=== PATIENT | male | born 1925 | race Caucasian/White ===

== ENCOUNTER 2017-03-22 11:32 | Inpatient (IN) ==
[2017-03-22] MEDS ORDERED: 0.9 % SODIUM CHLORIDE 1,000 ML IV ONE (12:29)
[2017-03-22 12:31] LABS: Basophils # (Auto) 0 K/mcL (0.0-0.3); Basophils % (Auto) 0.5 % (0.0-2.0); Eosinophils # (Auto) 0 K/mcL (0.0-0.7); Eosinophils % (Auto) 0.3 % (0.0-7.0); Granulocytes % (Auto) 61.6 % (38.0-78.0); Lymphocytes # (Auto) 1.5 K/mcL (1.5-4.8); Lymphocytes % (Auto) 23.8 % (15.5-49.0); Mean Cell Volume 100.5 fL (80.0-100.0); Mean Corpuscular HGB Conc 33.6 g/dL (31.0-36.0); Mean Corpuscular Hemoglobin 33.7 pg (26.0-34.0); Monocytes # (Auto) 0.8 K/mcL (0.1-0.9); Monocytes % (Auto) 13.8 % (1.0-12.0); Platelet Count 146 K/mcL (140-440); Red Cell Distribution Width 15.3 % (11.5-14.5)
--- NOTE | 2017-03-22 12:53 | XRay Report ---
CLINICAL INFORMATION: Weakness COMPARISON: None. FINDINGS: The heart is moderately enlarged. Mediastinum is unremarkable. Upper lobe pulmonary vessels are mildly distended and there is minimal interstitial edema. No infiltrates or effusions. Bones soft tissues are normal. IMPRESSION: Mild CHF Interpreted and Authenticated by: Ozzy Rogel 03/22/17
[2017-03-22 12:55] LABS: ALT/SGPT 10 U/l (0-40); Alkaline Phosphatase 69 U/L (39-117); Blood Urea Nitrogen 51 mg/dl (8-23)
[2017-03-22 13:13] LABS: Creatine Kinase 24 IU/L (24-195); Creatine Kinase MB 1.5 ng/ml (0-4.9)
--- NOTE | 2017-03-22 14:21 | Emergency Department Note ---
General Adult HPI - General Chief complaint: Dizziness Stated complaint: Dizziness, hypotension, weakness Time Seen by Provider: 03/22/17 11:42 Source: patient, family, EMS Mode of arrival: EMS Limitations: no limitations - History of Present Illness HPI Narrative: 89-year-old male comes over from [facility] nursing facility with lightheadedness. He almost fell out of his chair while trying to eat breakfast. Has some hypotension and weakness. No fever chills nausea vomiting. No trouble urinating. Normally he walks with a walker but not today. He notes some cramping and diarrhea for the last 4 days - Related Data Home Medications Medication Instructions Recorded Confirmed benazepril 20 mg tablet 20 mg PO QDAY tab 09/16/15 03/22/17 cholecalciferol (vitamin D3) 5,000 5,000 unit PO QDAY tab 09/16/15 05/25/16 unit tablet simvastatin 40 mg tablet 20 mg PO QDAY tab 09/16/15 03/22/17 Apixaban [Eliquis] 5 mg PO BID 03/22/17 03/22/17 Furosemide [Lasix] 40 mg PO DAILY 03/22/17 03/22/17 Potassium Chloride [Klor-Con M10] 30 meq PO 03/22/17 Spironolactone [Aldactone] 25 mg PO DAILY 03/22/17 03/22/17 Vitamin D3 1,000 unit PO DAILY 03/22/17 03/22/17 Previous Rx's Medication Instructions Recorded finasteride 5 mg tablet 5 mg PO DAILY #90 tab 11/29/16 oxybutynin chloride ER 5 mg 5 mg PO QDAY #90 tab 11/29/16 tablet,extended release 24 hr Allergies Allergy/AdvReac Type Severity Reaction Status Date / Time Sulfa (Sulfonamide Allergy Mild Itching Verified 03/22/17 15:29 Antibiotics) Review of Systems All systems ED: reviewed and negative except as stated. Past Medical History - Past Medical History Attestation: Yes: The following information was validated with the patient. Medical history: Reports: atrial fibrillation, CVA, DVT, hyperlipidemia, hypertension, osteoporosis, other (Prostate hypertrophy) Surgical history ED: Reports: knee replacement, splenectomy, other (Terry filter, bladder surgery ) - Social History smoking status: Never smoker Physical Exam Thin frail appearing elderly gentleman in no acute distress. Normocephalic atraumatic. Conjunctive are clear sclerae nonicteric. No nasal discharge or congestion. Oropharynx is pink and moist. Neck is supple without lymphadenopathy or thyromegaly. Heart is regular the irregular rhythm. Lungs are clear to auscultation bilaterally without wheezes rales rhonchi or respiratory distress. Abdomen soft nontender nondistended. No pedal edema. + 2 radial pulse. Alert oriented. Able to answer questions appropriately but irritable - General Limitations: no limitations Course Vital Signs Temperature 98.4 F 03/22/17 11:33 Pulse Rate 78 03/22/17 11:33 Respiratory Rate 20 03/22/17 11:33 Blood Pressure 76/50 03/22/17 11:33 Pulse Oximetry (%) 95 03/22/17 11:33 Temperature 97.1 F 03/23/17 07:54 Pulse Rate 71 03/23/17 04:00 Respiratory Rate 14 03/23/17 07:54 Blood Pressure 88/50 03/23/17 07:54 Pulse Oximetry (%) 91 03/23/17 07:54 Medical Decision Making - Medical Records Medical records reviewed: Yes I reviewed the patient's medical records. - Lab Data Lab results reviewed: Yes I reviewed the patient's lab results. Result diagrams: 03/23/17 03:45 03/23/17 03:45 Lab Results 03/22/17 03/22/17 03/22/17 Range/Units 12:05 12:05 12:05 WBC 6.1 (4.5-11.0) K/mcL RBC 4.10 L (4.50-5.90) M/mcL Hgb 13.8 (13.5-16.5) g/dL Hct 41.1 (41.0-55.0) % MCV 100.5 H (80.0-100.0) fL MCH 33.7 (26.0-34.0) pg MCHC 33.6 (31.0-36.0) g/dL RDW 15.3 H (11.5-14.5) % Plt Count 146 (140-440) K/mcL MPV 10.8 H (7.4-10.4) fL Gran % 61.6 (38.0-78.0) % Lymph % (Auto) 23.8 (15.5-49.0) % [place] % (Auto) 13.8 H (1.0-12.0) % Eos % (Auto) 0.3 (0.0-7.0) % Baso % (Auto) 0.5 (0.0-2.0) % Gran # 3.8 (1.8-8.0) K/mcL Lymph # (Auto) 1.5 (1.5-4.8) K/mcL [place] # (Auto) 0.8 (0.1-0.9) K/mcL Eos # (Auto) 0 (0.0-0.7) K/mcL Baso # (Auto) 0 (0.0-0.3) K/mcL VBG Lactic Acid (0.5-2.2) mmol/L Sodium 137 (133-145) mmol/L Potassium 4.8 (3.3-5.1) mmol/L Chloride 103 (96-108) mmol/L Carbon Dioxide 20 L (22-30) mmol/L Anion Gap 14.0 (8-16) BUN 51 H (8-23) mg/dl Creatinine 1.9 H (0.7-1.2) mg/dl GFR Calculation 31 Glucose 103 (70-105) mg/dL Calcium 8.7 (8.6-10.4) mg/dl Total Bilirubin 1.7 H (0.0-1.0) mg/dL AST 14 (0-37) U/l ALT 10 (0-40) U/l Alkaline Phosphatase 69 (39-117) U/L Total Creatine Kinase 24 (24-195) IU/L CK-MB (CK-2) 1.5 (0-4.9) ng/ml Troponin T (0-0.03) ng/ml Total Protein 6.0 (5.9-8.4) gm/dL Albumin 3.0 L (3.2-5.2) gm/dL Globulin 3.0 (2.2-3.7) gm/dL Albumin/Globulin Ratio 1.0 (1.0-2.3) 03/22/17 03/22/17 Range/Units 12:05 13:08 WBC (4.5-11.0) K/mcL RBC (4.50-5.90) M/mcL Hgb (13.5-16.5) g/dL Hct (41.0-55.0) % MCV (80.0-100.0) fL MCH (26.0-34.0) pg MCHC (31.0-36.0) g/dL RDW (11.5-14.5) % Plt Count (140-440) K/mcL MPV (7.4-10.4) fL Gran % (38.0-78.0) % Lymph % (Auto) (15.5-49.0) % [place] % (Auto) (1.0-12.0) % Eos % (Auto) (0.0-7.0) % Baso % (Auto) (0.0-2.0) % Gran # (1.8-8.0) K/mcL Lymph # (Auto) (1.5-4.8) K/mcL [place] # (Auto) (0.1-0.9) K/mcL Eos # (Auto) (0.0-0.7) K/mcL Baso # (Auto) (0.0-0.3) K/mcL VBG Lactic Acid 1.0 (0.5-2.2) mmol/L Sodium (133-145) mmol/L Potassium (3.3-5.1) mmol/L Chloride (96-108) mmol/L Carbon Dioxide (22-30) mmol/L Anion Gap (8-16) BUN (8-23) mg/dl Creatinine (0.7-1.2) mg/dl GFR Calculation Glucose (70-105) mg/dL Calcium (8.6-10.4) mg/dl Total Bilirubin (0.0-1.0) mg/dL AST (0-37) U/l ALT (0-40) U/l Alkaline Phosphatase (39-117) U/L Total Creatine Kinase (24-195) IU/L CK-MB (CK-2) (0-4.9) ng/ml Troponin T < 0.01 (0-0.03) ng/ml Total Protein (5.9-8.4) gm/dL Albumin (3.2-5.2) gm/dL Globulin (2.2-3.7) gm/dL Albumin/Globulin Ratio (1.0-2.3) - Radiology Data Radiology results reviewed: Yes I reviewed the patient's radiology results. Bladder scan 125 mL of urine Chest x-ray shows mild to moderate CHF with pulmonary vascular congestion - EKG Data EKG #1 EKG attestation: Yes I reviewed and interpreted this EKG. EKG results narrative: Rate is 78 with atrial fibrillation low voltage in the inferior leads Disposition Clinical Impression: Acute kidney injury, Dehydration Diarrhea Qualifiers: Diarrhea type: unspecified type Qualified Code(s): R19.7 - Diarrhea, unspecified Hypotension Qualifiers: Hypotension type: unspecified hypotension type Qualified Code(s): I95.9 - Hypotension, unspecified Summary: Hypotensive and with acute renal failure likely secondary to dehydration from diarrhea. Started IV fluids during workup Discussed patient with Dr. Herrera hospitalist, agreed to admit the patient for further care and evaluation Disposition: Xfer As Inpt ([facility]) Condition: Fair
[2017-03-22] MEDS ORDERED: NALOXONE HCL 0.4 MG/ML VIAL IV PRN (15:26)
[2017-03-22] MEDS ORDERED: HYDROcodone/APAP 5/325MG TABLET PO PRN (15:26)
[2017-03-22] MEDS ORDERED: ACETAMINOPHEN 325 MG TABLET PO PRN (15:26)
[2017-03-22] MEDS ORDERED: ONDANSETRON 4 MG/2 ML VIAL IV PRN (15:26)
[2017-03-22] MEDS ORDERED: IPRATROPIUM/ALBUTEROL 3 ML AMPUL.NEB NEB PRN (15:26)
--- NOTE | 2017-03-22 15:46 | Internal Med History&Physical ---
Medical - H&P: HPI Patient information: Note initiated : 03/22/17 at 3:42 pm Service Date, if different from initiated Date: [] Patient: Maxwell Velazquez a 89 y/o M admitted on for Dizziness, Hypotension, Weakness. Chief Complaint: [] History of present illness: Mr. Velazquez is a 89 year old male with h/o Chr DVT, Afib, presents to the ER with presyncope, weakness and dizziness. The patient has not been feeling well, for over 2 weeks, his pcp swictched him from coumadin to eliquis. The patient also had significant swelling in his legs and his dose of diuretics was doubled (lasix 20 to 40) , and he was started on a new diuretic(spironolactone 50), Since then the patient has had increased weakness and fatigue. Over the last few days, Tuesday he started having diarrhea , 3 episodes, then on tuesday one episode. 2 episodes on Tuesday, adn Tuesday and today. HE was therefore brought in for eval. He denies any blood or mucous in stool, no abdominal pain, no nausea or vomiting, no difficulty in passing urine. He is able to tolerate PO ok, but not sure if he has been drinking enough fluid. No recent hospitalization or use of antibiotic. In the ER the patient was noted to be hypotensive, he had elevated creat and clinically appeared dry, He was therefore admitted to the hospital for further management. Review of systems: CONSTITUTIONAL: No weight loss, fever, chills. Present weakness and fatigue. HEENT: Eyes: No visual loss, blurred vision, double vision or yellow sclerae. Ears, Nose, Throat: No hearing loss, sneezing, congestion, runny nose or sore throat. SKIN: No rash or itching. CARDIOVASCULAR: No chest pain, chest pressure or chest discomfort. No palpitations or edema. RESPIRATORY: No shortness of breath, cough or sputum. GASTROINTESTINAL: No nausea, vomiting or constipation. No abdominal pain or blood in stools No Najma. Present Diarrhea GENITOURINARY: Denies Burning on urination. Blood in urine, or foul smelling urine NEUROLOGICAL: No headache, dizziness, syncope, paralysis, tremors, numbness or tingling in the extremities. No change in bowel or bladder control. MUSCULOSKELETAL: No muscle, back pain, joint pain or stiffness. HEMATOLOGIC: No bleeding or bruising. No enlarged nodes PSYCHIATRIC: No depression or anxiety. ENDOCRINOLOGIC: No reports of sweating, cold or heat intolerance. No polyuria or polydipsia. ALLERGIES: No hives, eczema or rhinitis. Skin: No rash, no jaundice, cyanosis or pallor. 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) Bladder trabeculation (Chronic) Breast hypertrophy (Chronic) Cerebrovascular accident (Chronic) Colon polyps (Chronic) Diverticulosis of colon (Chronic) Hematuria, gross (Chronic 01/09/14) Hemorrhoids (Chronic) Hyperlipidemia (Chronic) Hyperplasia of prostate without lower urinary tract symptoms (LUTS) (Chronic) Hypertension (Chronic) Impacted cerumen (Chronic) Knee pain (Chronic) Neoplasm of uncertain behavior (Chronic) Onychomycosis (Chronic) Osteopenia (Chronic) Seborrheic keratosis (Chronic) Urinary calculus (Chronic 01/16/14) Urinary tract infection (Chronic) Venous insufficiency (Chronic) Weakness (Chronic) Surgical history: Past Surgical History (Last Updated 02/17/17 @ 14:10 by [email or web address] PA) History of bladder surgery (Chronic) History of cystoscopy (Chronic) History of knee replacement procedure of right knee (Chronic) History of splenectomy (Chronic) Family history: reviewed and not pertinent 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 Medical - H&P: Meds Home Medications Medication Instructions Recorded Confirmed Type benazepril 20 mg tablet 20 mg PO QDAY tab 09/16/15 05/25/16 History cholecalciferol (vitamin D3) 5,000 5,000 unit PO QDAY tab 09/16/15 05/25/16 History unit tablet simvastatin 40 mg tablet 20 mg PO QDAY tab 09/16/15 05/25/16 History finasteride 5 mg tablet 5 mg PO DAILY #90 tab 11/29/16 11/29/16 Rx oxybutynin chloride ER 5 mg 5 mg PO QDAY #90 tab 11/29/16 11/29/16 Rx tablet,extended release 24 hr Apixaban [Eliquis] 5 mg PO BID 03/22/17 03/22/17 History Furosemide [Lasix] 40 mg PO DAILY 03/22/17 03/22/17 History Potassium Chloride [Klor-Con M10] 30 meq PO 03/22/17 History Spironolactone [Aldactone] 25 mg PO DAILY 03/22/17 03/22/17 History Vitamin D3 1,000 unit PO DAILY 03/22/17 03/22/17 History Allergies Allergy/AdvReac Type Severity Reaction Status Date / Time Sulfa (Sulfonamide Allergy Mild Itching Verified 03/22/17 15:29 Antibiotics) Medical - H&P: Exam - Constitutional Vitals: Temp Pulse Resp BP Pulse Ox 98.4 F 98 H 15 108/76 91 03/22/17 11:33 03/22/17 14:51 03/22/17 14:51 03/22/17 14:31 03/22/17 14:51 Exam: GENERAL: The patient is a well-developed, well-nourished in no apparent distress. Is alert and oriented x3. VITAL SIGNS: Reviewed and as noted elsewhere. HEENT: Head is normocephalic and atraumatic. Extraocular muscles are intact. Pupils are equal, round, and reactive to light. Nares appeared normal. Mouth appears any without lesions. Mucous membranes are dry. NECK: Normal to inspection, Supple, No lymphadenopathy or thyromegaly. LUNGS: Air entry equal on both sides, no wheezing, crackles or rhonchi noted. No accessory muscles of respiration HEART: Regular rate and rhythm irregular , S1 and S2 heard, no Gallop, S3 or Rub Noted, No Gross murmur heard. ABDOMEN: Soft, nontender, and nondistended. Positive bowel sounds. No hepatosplenomegaly was noted. EXTREMITIES: No cyanosis, clubbing, rash, lesions or edema. NEUROLOGIC: Cranial nerves II through XII are grossly intact. Motor and Sensory System Grossly Intact PSYCHIATRIC: Normal affect, Normal Mood. Appropriate Behavior. SKIN: No ulceration or wounds noted, No jaundice, No rash noted. Legs: No edema, tarah venous statis noted, poor nails Medical - H&P: Reslt - Labs CBC & Chem 7: 06/20/17 12:05 03/22/17 12:05 Labs: Short CBC 03/22/17 Range/Units 12:05 WBC 6.1 (4.5-11.0) K/mcL Hgb 13.8 (13.5-16.5) g/dL Hct 41.1 (41.0-55.0) % Plt Count 146 (140-440) K/mcL BMP 03/22/17 12:05 Sodium 137 Potassium 4.8 Chloride 103 Carbon Dioxide 20 L BUN 51 H Creatinine 1.9 H Glucose 103 Calcium 8.7 Cardiac Enzymes 03/22/17 03/22/17 Range/Units 12:05 12:05 Total Creatine Kinase 24 (24-195) IU/L CK-MB (CK-2) 1.5 (0-4.9) ng/ml Troponin T < 0.01 (0-0.03) ng/ml Liver Function 03/22/17 Range/Units 12:05 Total Bilirubin 1.7 H (0.0-1.0) mg/dL AST 14 (0-37) U/l ALT 10 (0-40) U/l Alkaline Phosphatase 69 (39-117) U/L Albumin 3.0 L (3.2-5.2) gm/dL Medical - H&P: A/P - Narrative A/P Narrative: A/P Acute Kidney Injury: Pre Renal, due to diarrhea and Diuretics. Plan to hold Diurtiecs, CHRIST inhibitor and give IV fluids. BP stable now. Hold nephrotoxic drugs. Get UA, urine lytes. Consider Renal sonogram and renal consult if patient does not improve with fluids Diarrhea: Etiology: viral likely, get Cdiff. Afib: HR well controlled, IV fluids, on eliquis for anticoagulation. DVT: Recurrent episodes it seems, s/p IVC filter, on anticoagulation continue same HTN : Hypotensive at present, hold christ inhibitors. Monitor. Resume home meds for HLD, BPH, OAB. DVT on eliquis Diet Reguar diet Code DNR
[2017-03-22] MEDS: 0.9 % SODIUM CHLORIDE 1,000 ML IV SCH (16:42)
[2017-03-22 17:15] LABS: Appearance,Urine CLEAR; Bacteria,Urine FEW /hpf (0); Bilirubin,Urine NEG (NEG); Color,Urine YELLOW; Glucose,Urine (UA) NEGATIVE (NEG); Leukocyte Esterase,Urine 75 /uL (NEG); Mucus,Urine FEW /hpf (0); Nitrate,Urine NEG (NEG); Protein,Urine NEG (NEG); Specific Gravity,Urine 1.013 (1.000-1.035); Urine Blood NEG mg/dL (<0.03); Urine Hyaline Cast 22 /lpf (0-2); Urine RBC 1 /hpf (0-1); Urine Squamous Epithelial Cell < 1 /hpf (0-4); Urine WBC 8 /hpf (0-4); Urobilinogen,Urine NEG (NEG)
[2017-03-22] MEDS: SIMVASTATIN 20 MG TABLET PO SCH (20:15)
[2017-03-22] MEDS: OXYBUTYNIN CHLORIDE 5 MG TAB.XL.24H PO SCH (20:15)
[2017-03-22] MEDS: 0.9 % SODIUM CHLORIDE 10 ML SYRINGE IV SCH (21:50)
[2017-03-22] MEDS: APIXABAN 5 MG TABLET PO SCH (21:50)
[2017-03-23] MEDS: 0.9 % SODIUM CHLORIDE 1,000 ML IV SCH ×3 (01:58→11:23)
[2017-03-23] MEDS: 0.9 % SODIUM CHLORIDE 10 ML SYRINGE IV SCH ×3 (05:35→20:30)
[2017-03-23 05:56] LABS: Basophils % (Auto) 0.7 % (0.0-2.0); Eosinophils % (Auto) 1.2 % (0.0-7.0); Granulocytes % (Auto) 54.2 % (38.0-78.0); Lymphocytes # (Auto) 2.1 K/mcL (1.5-4.8); Mean Corpuscular HGB Conc 33.4 g/dL (31.0-36.0); Mean Corpuscular Hemoglobin 33.8 pg (26.0-34.0); Monocytes # (Auto) 0.9 K/mcL (0.1-0.9); Monocytes % (Auto) 12.9 % (1.0-12.0); Platelet Count 135 K/mcL (140-440); RBC 4.05 M/mcL (4.50-5.90); Red Cell Distribution Width 15.3 % (11.5-14.5)
[2017-03-23 05:57] LABS: Basophils # (Auto) 0.1 K/mcL (0.0-0.3); Eosinophils # (Auto) 0.1 K/mcL (0.0-0.7)
[2017-03-23 06:42] LABS: ALT/SGPT 11 U/l (0-40); Albumin 3.1 gm/dL (3.2-5.2); Alkaline Phosphatase 74 U/L (39-117); Bilirubin,Direct 0.2 mg/dL (0.0-0.3); Blood Urea Nitrogen 34 mg/dl (8-23); Gamma Glutamyl Transpeptidase 20 U/L (8-61); Magnesium 1.9 mg/dL (1.6-2.5); Uric Acid 6.8 mg/dL (2.5-8.0)
[2017-03-23] MEDS: APIXABAN 5 MG TABLET PO SCH (08:35)
[2017-03-23] MEDS: POTASSIUM CHLORIDE 10 MEQ TABLET PO SCH (08:35)
[2017-03-23] MEDS: VITAMIN D3 1,000 UNIT TABLET PO SCH (08:35)
[2017-03-23] MEDS: FINASTERIDE 5 MG TABLET PO SCH (08:35)
[2017-03-23] MEDS ORDERED: 0.9 % SODIUM CHLORIDE 500 ML IV ONE (09:22)
[2017-03-23 09:56] LABS: Cortisol,AM 4.8 ug/dl (6.2-19.4)
[2017-03-23] MEDS ORDERED: cefTRIAXone 2 GM in DEXTROSE 5% IN WATER 50 ML IV SCH (11:00)
--- NOTE | 2017-03-23 14:47 | Internal Med Progress Note ---
Medical - PN: Subj Patient information: Note initiated : 03/23/17 at 2:45 pm Service Date, if different from initiated Date: [] Patient: Maxwell Velazquez 89 y/o M admitted on 03/22/17 for Dizziness, Hypotension, Weakness. Chief Complaint: [] Interval history: Mr. Velazquez is a 89 year old male with h/o Chr DVT, Afib, presents to the ER with presyncope, weakness and dizziness. The patient has not been feeling well, for over 2 weeks, his pcp swictched him from coumadin to eliquis. The patient also had significant swelling in his legs and his dose of diuretics was doubled (lasix 20 to 40) , and he was started on a new diuretic(spironolactone 50), Since then the patient has had increased weakness and fatigue. Over the last few days, Tuesday he started having diarrhea , 3 episodes, then on tuesday one episode. 2 episodes on Tuesday, adn Tuesday and today. HE was therefore brought in for eval. He denies any blood or mucous in stool, no abdominal pain, no nausea or vomiting, no difficulty in passing urine. He is able to tolerate PO ok, but not sure if he has been drinking enough fluid. No recent hospitalization or use of antibiotic. In the ER the patient was noted to be hypotensive, he had elevated creat and clinically appeared dry, He was therefore admitted to the hospital for further management. 03/23: Pt seen examined, sitting comfortably in chair, no acute issues, urine cx positive for proteus, started on rocephin. Patient otherwise has no new complaints, his bp was low again, IV bolus given this AM and on maintaince fluids. Serafin denies any cp, sob, or dizziness. cdiff pending. Pertinent ROS: Denies headache, dizziness Denies chest pain, palpitations Denies cough or shortness of breath Denies abdominal pain, nausea or vomiting. - Constitutional Vitals: Vital Signs Temp Pulse Resp BP Pulse Ox 97.4 F 71 14 88/52 91 03/23/17 11:44 03/23/17 04:00 03/23/17 11:44 03/23/17 11:44 03/23/17 11:44 Period Temp Pulse Resp BP Sys/Topete Pulse Ox Last 24 Hr 97.1 F-97.6 F 70-87 14-14 84-100/50-65 91-95 Intake and Output 03/23/17 03/23/17 03/23/17 05:59 13:59 21:59 Intake Total 1350 / 1350 1360 / 1360 Output Total 301 / 301 Balance 1349 / 1349 1059 / 1059 Intake & Output: Intake & Output 03/23/17 03/23/17 03/23/17 05:59 13:59 21:59 Intake Total 1350 / 1350 1360 / 1360 Output Total 301 / 301 Balance 1349 / 1349 1059 / 1059 Intake: IV 1000 / 1000 1000 / 1000 Sodium Chloride 0.9% 1, 1000 / 1000 1000 / 1000 000 ml @ 125 mls/hr IV . Q8H NITIN Rx#:[id number] Oral 350 / 350 360 / 360 Output: Void Amount 300 / 300 # of times incontinent of urine Other: Meal Breakfast Percent of Meal Consumed 100% Exam: Constitutional; Afebrile, cooperative, alert, not in distress. Eyes- No icterus, , No periorbital swelling Ears- Ext ear normal, hearing hard to conversation. Neck- Midline trachea, supple Respiratory system: Air Entry equal on both sides, No crackles or wheezing, no rhonchi. CVS- Rate rhythm irregular, S1,S2 heard, no gallop, no rub. 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 Medical - PN: Obj Da - Labs CBC & Chem 7: 03/23/17 03:45 03/23/17 03:45 Labs: Abnormal Lab Results 03/23/17 03/23/17 03/23/17 03:45 03:45 03:45 RBC 4.05 L Hct 40.9 L MCV 101.0 H RDW 15.3 H Plt Count 135 L MPV 11.5 H [place] % (Auto) 12.9 H Carbon Dioxide 18 L BUN 34 H Total Bilirubin 1.7 H Lactate Dehydrogenase 277 H Albumin 3.1 L Cortisol AM Sample 4.8 L Ur Leukocyte Esterase Urine WBC Urine Bacteria Hyaline Casts 03/22/17 16:20 RBC Hct MCV RDW Plt Count MPV [place] % (Auto) Carbon Dioxide BUN Total Bilirubin Lactate Dehydrogenase Albumin Cortisol AM Sample Ur Leukocyte Esterase 75 A Urine WBC 8 H Urine Bacteria Few A Hyaline Casts 22 H Meds: Medications Acetaminophen (Tylenol) 650 mg PO Q6HP PRN PRN Reason: PAIN/FEVER > 101 Hydrocodone Bitart/Acetaminophen (Lillian 5/325mg) 1 tab PO Q4HP PRN PRN Reason: Pain Albuterol/Ipratropium (Duoneb) 3 ml NEB Q6HRT PRN PRN Reason: Shortness Of Breath Or Wheezing Finasteride (Proscar) 5 mg PO DAILY [facility] Last Admin: 03/23/17 08:35 Dose: 5 mg Sodium Chloride (Sodium Chloride 0.9%) 1,000 mls @ 125 mls/hr IV .Q8H [facility] Stop: 03/23/17 15:25 Last Admin: 03/23/17 11:23 Dose: 125 mls/hr Ceftriaxone Sodium 2 gm/ (Dextrose) 50 mls @ 100 mls/hr IV Q24H [facility] Last Admin: 03/23/17 11:23 Dose: 100 mls/hr Naloxone HCl (Narcan) 0.1 mg IV Q2MIN PRN PRN Reason: Opiate Reversal Ondansetron HCl (Zofran) 4 mg IV Q6HP PRN PRN Reason: Nausea And Vomiting Oxybutynin Chloride (Ditropan Xl) 5 mg PO [facility] Last Admin: 03/22/17 20:15 Dose: 5 mg Potassium [facility] ([facility]ur) [facility] Admin: 03/23/17 08:35 Dose: 30 meq Simvastatin (Zocor) 20 mg PO [facility] Last Admin: 03/22/17 20:15 Dose: 20 mg Sodium Chloride (Saline Flush) 10 ml IV Q8 [facility] Last Admin: 03/23/17 05:35 Dose: Not Given Vitamin D (Vitamin D3) 1,000 unit PO DAILY [facility] Last Admin: 03/23/17 08:35 Dose: 1,000 unit Medical - PN: A/P - Time Spent With Patient Total time spent is greater than 50% in coordination of care (as documented) at patient's floor/unit and/or counseling patient: - Narrative A/P Narrative: A/P Acute Kidney Injury: pre renal, Creat is improving , today 1.2 from 1.9, continue to hold bp meds and diurteics UTI: proteus noted, started on IV rocephin, await sensitivities. Diarrhea: Etiology: viral likely, await Cdiff. Afib: HR well controlled, IV fluids, on eliquis for anticoagulation. DVT: Recurrent episodes it seems, s/p IVC filter, on anticoagulation continue same HTN : Hypotensive at present, hold tomy inhibitors. Monitor. IV fluids Resume home meds for HLD, BPH, OAB. DVT on eliquis Diet Reguar diet Code DNR Medical - PN: Qual - VTE Deep Vein Thrombosis/Pulmonary Embolism Present on Admission: No
[2017-03-23] MEDS: SIMVASTATIN 20 MG TABLET PO SCH (21:23)
[2017-03-23] MEDS: OXYBUTYNIN CHLORIDE 5 MG TAB.XL.24H PO SCH (21:23)
[2017-03-24] MEDS: APIXABAN 5 MG TABLET PO SCH ×2 (00:30→08:20)
[2017-03-24] MEDS: 0.9 % SODIUM CHLORIDE 10 ML SYRINGE IV SCH (06:07)
[2017-03-24 06:15] LABS: Basophils # (Auto) 0 K/mcL (0.0-0.3); Basophils % (Auto) 0.5 % (0.0-2.0); Eosinophils # (Auto) 0.2 K/mcL (0.0-0.7); Eosinophils % (Auto) 2.3 % (0.0-7.0); Granulocytes % (Auto) 57.7 % (38.0-78.0); Lymphocytes # (Auto) 2.3 K/mcL (1.5-4.8); Lymphocytes % (Auto) 29.3 % (15.5-49.0); Mean Cell Volume 101.9 fL (80.0-100.0); Mean Corpuscular HGB Conc 33.5 g/dL (31.0-36.0); Mean Corpuscular Hemoglobin 34.1 pg (26.0-34.0); Monocytes # (Auto) 0.8 K/mcL (0.1-0.9); Monocytes % (Auto) 10.2 % (1.0-12.0); Platelet Count 128 K/mcL (140-440); RBC 4.07 M/mcL (4.50-5.90); Red Cell Distribution Width 15.6 % (11.5-14.5)
[2017-03-24 06:30] LABS: ALT/SGPT 10 U/l (0-40); Albumin 3.2 gm/dL (3.2-5.2); Alkaline Phosphatase 78 U/L (39-117); Bilirubin,Direct < 0.2 mg/dL (0.0-0.3); Blood Urea Nitrogen 24 mg/dl (8-23); Gamma Glutamyl Transpeptidase 19 U/L (8-61); Magnesium 1.8 mg/dL (1.6-2.5); Uric Acid 5.4 mg/dL (2.5-8.0)
[2017-03-24] MEDS: FINASTERIDE 5 MG TABLET PO SCH (08:20)
[2017-03-24] MEDS: POTASSIUM CHLORIDE 10 MEQ TABLET PO SCH (08:21)
[2017-03-24] MEDS: VITAMIN D3 1,000 UNIT TABLET PO SCH (08:21)
--- NOTE | 2017-03-24 10:59 | Discharge Summary ---
Medical - DS: Prov Patient information: Note initiated : 03/24/17 at 10:51 am Service Date, if different from initiated Date: [] Patient: Maxwell Velazquez 89 y/o M admitted on 03/22/17 for Dizziness, Hypotension, Weakness. Chief Complaint: [] Date of admission: 03/22/17 15:46 Discharge date: 03/24/17 Primary care physician: Mayco Michael Admitting clinician: Venkatesh Herrera Discharging clinician: Venkatesh Herrera Medical - DS: Meds - Discharge Medications Prescriptions: Cefuroxime [Ceftin] 500 mg PO Q12 #20 tablet Furosemide [Lasix] 20 mg PO DAILY #30 tablet Active and Home Medications: Home Medications benazepril 20 mg tablet 20 mg PO QDAY tab 09/16/15 [History Confirmed 03/22/17 Last Taken 03/21/17 20 MG.] cholecalciferol (vitamin D3) 5,000 unit tablet 5,000 unit PO QDAY tab 09/16/15 [History Confirmed 05/25/16 Last Taken Unknown] simvastatin 40 mg tablet 20 mg PO QDAY tab 09/16/15 [History Confirmed Last Taken 03/21/17 40 MG.] finasteride 5 mg tablet 5 mg PO DAILY #90 tab 11/29/16 [Rx Confirmed 03/22/17 Last Taken 03/21/17 5 MG.] oxybutynin chloride ER 5 mg tablet,extended release 24 hr 5 mg PO QDAY #90 tab 11/29/16 [Rx Confirmed 03/22/17 Last Taken 03/21/17 5 MG.] Apixaban [Eliquis] 5 mg PO BID 03/22/17 [History Confirmed 03/22/17 Last Taken 03/21/17 5 MG.] Furosemide [Lasix] 40 mg PO DAILY 03/22/17 [History Confirmed 03/22/17 Last Taken 03/21/17 40 MG.] Potassium Chloride [Klor-Con M10] 30 meq PO 03/22/17 [History Last Taken 30 MEQ] Spironolactone [Aldactone] 25 mg PO DAILY 03/22/17 [History Confirmed 03/22/17 Last Taken 03/21/17 25 MG.] Vitamin D3 1,000 unit PO DAILY 06/20/17 [History Confirmed 03/22/17 Last Taken 03/21/17 1000 UNITS] Medical - DS: Hosp Hospital course: Mr. Velazquez is a 89 year old male with h/o bph, afib, and other medical issues presented to the ER with complaints of diarrhea, dizziness and was noted to be hypotensive and in renal failure on presentation. Acute kidney Injury: Due to dehydration from increased dose of diuretic as well as diarrhea, pt presented with creat of 1.9 on admission, On discharge his creat is 1.0 back to baseline. He is able to tolerate po meds well His dose of lasix has been cut back to 20mg once daily, he will follow up with his PCP for further management. Diarrhea: resolved, cdiff was neg, likely viral in nature. consider prn imodium if recurs UTI: Pt did not endorse UTI symtoms, however urine cx was positive for proteus, sensitive to oral cephalosporins, treated with rocephin, will be discharged with cefuroxime 500mg bid x 10 days. He sees urology on a regular basis. If symptoms recur he may benfit from sooner evaluation by urology. AFib: HR well controlled, on eliquis for anticoagulation continue same. HTN: BP meds were held during hospital stay as pt was hypotensive, to be resumed at discharged. No changes in his meds done except short term use of cefuroxime and cutting back on the dose of lasix from 40 to 20mg. The rest of medical conditions were stable. Pt has home health already in place , services will be resumed at discharge. Discharge diagnosis: UTI, HYpotension, Acute kidney injury - Time Spent with Patient Total time spent providing and/or coordinating discharge services: Greater than 30 minutes Medical - DS: Exam - Constitutional Vitals: Vital Signs Temp Pulse Resp BP Pulse Ox 03/24/17 07:39 98.4 F 16 120/61 95 03/24/17 04:00 97.4 F 80 16 120/65 93 03/24/17 00:00 97.6 F 84 16 111/72 94 03/23/17 20:00 98.0 F 75 16 124/63 94 03/23/17 16:00 97.7 F 14 102/56 91 03/23/17 11:44 97.4 F 14 88/52 91 Intake and Output 03/23/17 03/24/1703/24/17 21:59 05:59 13:59 Intake Total 1240 / 1240 600 / 600 Output Total Balance 1239 / 1239 599 / 599 - Intake: IV 1000 / 1000 Oral 240 / 240 600 / 600 Output: # of times incontinent of urine Other: Meal Dinner Percent of Meal Consumed 100% Feeding Ability Independent # Voids 1 # Bowel Movements 1 Weight 157 lb 8 oz Additional comments: Constitutional; Afebrile, cooperative, alert, not in distress. Eyes- No icterus, , No periorbital swelling Ears- Ext ear normal, hearing normal to conversation. Neck- Midline trachea, supple Respiratory system: Air Entry equal on both sides, No crackles or wheezing, no rhonchi. CVS- Rate rhythm irregular, S1,S2 heard, no gallop, no rub. Abdomen- Soft nontender abdomen, no organomegaly, no tenderness, no guarding or rigidity, [employer]- AOOx3, moving all extremities, no gross focal deficit noted. Medical - DS: Data Labs on day of discharge: Labs from last 24 hours 03/24/17 03/24/17 04:03 04:03 WBC 7.7 RBC 4.07 L Hgb 13.9 Hct 41.5 MCV 101.9 H MCH 34.1 H MCHC 33.5 RDW 15.6 H Plt Count 128 L MPV 11.2 H Gran % 57.7 Lymph % (Auto) 29.3 Yancey % (Auto) 10.2 Eos % (Auto) 2.3 Baso % (Auto) 0.5 Gran # 4.4 Lymph # (Auto) 2.3 Yancey # (Auto) 0.8 Eos # (Auto) 0.2 Baso # (Auto) 0 Sodium 139 Potassium 4.8 Chloride 110 H Carbon Dioxide 21 L Anion Gap 8.0 BUN 24 H Creatinine 1.0 GFR Calculation 66 Glucose 82 Uric Acid 5.4 Calcium 9.2 Phosphorus 2.9 Magnesium 1.8 Total Bilirubin 1.0 Direct Bilirubin < 0.2 GGT 19 AST 15 ALT 10 Alkaline Phosphatase 78 Lactate Dehydrogenase 215 Total Protein 6.3 Albumin 3.2 Globulin 3.1 Albumin/Globulin Ratio 1.0 Triglycerides 65 Medical - DS: A/P - Patient/Caregiver Discharge Instructions Activity: as per physical therapy, increase activity as tolerated Diet: Cardiac Additional Instructions: Your dose of lasix (furosemide) water pill has been cut from 40mg to 20mg, Please follow up with your pcp in 7 days for further management. Go to ER for worsening condition or any new concerning symptom. Take your medications as prescribed. - Follow up Plan Follow up with: Mayco Michael MD [Primary Care Provider] - Venkatesh Herrera MD [Physician] - Disposition: Home Health Service Prognosis: Fair Rehab Potential: Fair I certify that the patient requires SNF services: No Overall status at discharge: patient is progressing back to baseline Medical - DS: Qual - VTE Deep Vein Thrombosis/Pulmonary Embolism Present on Admission: No
== END 2017-03-24 12:05 | disposition home health service (06) | DRG 683 ==
LOC: MEDSUR 11:32 → ED 11:32 → MEDSUR 15:44 → OBSVTOIN 15:46 → MEDSUR 03-23 17:35
PROVIDERS: ADMIT Internal Medicine; ATTEND Internal Medicine